=== PATIENT | male | born 1955 | race Caucasian/White ===

== ENCOUNTER 2016-11-17 13:33 | Emergency (ER) | payer BC, OTHER ==
[~2016-11-17] VITALS: Ht 177.8 cm; Wt 77.1 kg
[~2016-11-17 13:33] MED LIST: AMLO10TA2 PO; ASPI81TA27 PO; ATOR10TA52 PO; FOSI20TA PO; HYDR-2652 PO; OMEP20CA5 PO; ONDA4TAB5 PO; PANT40TA2 PO; POT10T PO
[2016-11-17] MEDS ORDERED: TETANUS-DIPTH-ACEL PERTUSSIS 0.5ML SYRG IM ONE (18:00)
[2016-11-17] MEDS ORDERED: BACITRACIN TOP OINT 1 UD PKG TOP ONE (18:15)
[2016-11-17 18:21] VITALS: BP 148/80
== END 2016-11-17 18:29 | disposition home or self-care (01) ==
LOC: EDUNIT# 13:33 → EDBD 13:33 → ER 13:37
DX: S01.112A Laceration without foreign body of left eyelid and periocular area, initial encounter (principal); W01.0XXA Fall on same level from slipping, tripping and stumbling without subsequent striking against object, initial encounter; Y93.89 Activity, other specified; Y99.8 Other external cause status; Y92.009 Unspecified place in unspecified non-institutional (private) residence as the place of occurrence of the external cause
CPT/HCPCS: 12013; 70450; 90471; 90715; 99284; J7030

== ENCOUNTER 2017-10-18 04:07 | Inpatient (IN) | payer BC, OTHER ==
[~2017-10-18] VITALS: Ht 180.3 cm; Wt 96.2 kg
[~2017-10-18 04:07] MED LIST changes: -HYDR-2652 PO; +HYDR50TA15 PO; -OMEP20CA5 PO; +OMEP20CA74 PO
[2017-10-18] MEDS ORDERED: NALBUPHINE HCL 10 MG/1ml INJECTION IV ONE (07:00)
[2017-10-18 07:04] LABS: Eosinophils # (auto) 0 uL; Eosinophils % (auto) 0.1 % (0.0-7.0); Monocytes # (auto) 0.4 uL
[2017-10-18 07:07] LABS: Basophils # (auto) 0.1 uL; Basophils % (auto) 0.9 % (0.0-2.0); Hemoglobin 16.8 g/dL (13.5-17.5); Lymphocytes # (auto) 0.8 uL; Lymphocytes % (auto) 11.2 % (10.0-50.0); Mean Corpuscular Hemoglobin 34.4 pg (28.0-32.0); Mean Corpuscular Hgb Conc. 35.8 g/dL (32.0-36.0); Mean Corpuscular Volume 96.3 fL (80.0-100.0); Monocytes % (auto) 5.6 % (0.0-12.0); Neutrophils # (auto) 5.5 uL; Neutrophils % (auto) 82.2 % (37.0-80.0); Platelet Count (auto) 238 10^3/uL (140-450); Red Blood Cells 4.88 10^6/uL (4.5-5.90); Red Cell Distribution Width 14.1 % (11.8-14.3); White Blood Cell 6.7 10^3/uL (4.4-10.8)
[2017-10-18 07:19] LABS: Alanine Aminotransferase 67 U/L (16-61); Albumin 4.6 g/dL (3.4-5.0); Amylase 132 U/L (25-115); Anion Gap 13 (5-15); Aspartate Aminotransferase 95 U/L (15-37); BUN/Creatinine Ratio 9.6; Blood Urea Nitrogen 10 mg/dL (7-18); Calcium 10.3 mg/dL (8.5-10.1); Carbon Dioxide 27 mmol/L (21-32); Chloride 93 mmol/L (98-107); GFR African American 92 mL/min; GFR Non-African American 76 mL/min; Glucose 130 mg/dL (74-106); Lipase 150 U/L (73-393); Sodium 133 mmol/L (136-145)
[2017-10-18 07:24] LABS: INR 0.96 (0.9-1.15); Partial Thromboplastin Time 26.4 sec (22.64-33.71); Prothrombin Time 10.5 sec (9.37-12.3)
[2017-10-18 07:25] LABS: Alkaline Phosphatase 83 U/L (45-117); Bilirubin, Total 1.1 mg/dL (0.2-1.0); Total Protein 9.4 g/dL (6.4-8.2)
[2017-10-18 07:27] LABS: Potassium 2.6 mmol/L (3.5-5.1)
[2017-10-18] MEDS ORDERED: POTASSIUM CHL 10% (20 MEQ/15ML) 15ml ORAL SOLN PO ONE (08:00)
[2017-10-18] MEDS ORDERED: cloNIDine HCL 0.1 MG TAB PO PRN (09:15)
[2017-10-18] MEDS ORDERED: DEXTROSE (50%) 50ML SYRG IV PRN (09:30)
[2017-10-18] MEDS ORDERED: cefTRIAXone 1GM/10ml IVPUSH 10 ML IV ONE (09:30)
[2017-10-18] MEDS ORDERED: NITROGLYCERIN 0.4 MG SL TAB SL PRN (09:45)
[2017-10-18] MEDS ORDERED: DOCUSATE SOD 100 MG CAP PO PRN (09:45)
[2017-10-18] MEDS ORDERED: MORPHINE SULFATE 4 MG/ML SYR/VIAL IV PRN (09:45)
[2017-10-18] MEDS ORDERED: ONDANSETRON HCL 4 MG/2 ML VIAL IV PRN (09:45)
[2017-10-18] MEDS: POTASSIUM CHL 10 Meq TABLET PO SCH ×2 (09:59→22:35)
[2017-10-18] MEDS: MULTIPLE VITAMIN TAB PO SCH (09:59)
[2017-10-18] MEDS ORDERED: FAMOTIDINE 20 MG TAB PO SCH (10:00)
[2017-10-18] MEDS: hydrALAZINE HCL 25 MG TAB PO SCH ×2 (10:15→22:38)
[2017-10-18] MEDS: SODIUM CHLORIDE 0.9% 1,000 ML IV SCH (10:15)
[2017-10-18] MEDS: amLODIPine BESYLATE 5 MG TAB PO SCH (10:16)
[2017-10-18] MEDS: FOSINOPRIL SODIUM 10 MG TAB PO SCH (10:16)
[2017-10-18] MEDS: ASPirin-EC 81 mg tab PO SCH (10:16)
[2017-10-18] MEDS: PANTOPRAZOLE 40 MG TAB PO SCH (10:16)
[2017-10-18] MEDS: MORPHINE SULFATE 4 MG/ML SYR/VIAL IV PRN ×3 (10:32→22:35)
[2017-10-18] MEDS ORDERED: GASTROGRAFIN 120 ML SOL ONE (10:36)
[2017-10-18] MEDS: ACCU-CHEK COMFORT CURVE STRIP VI SCH ×3 (11:30→22:00)
[2017-10-18 12:00] VITALS: BP 159/95
[2017-10-18 12:04] VITALS: BP 159/95
[2017-10-18] MEDS: HYDROcodone-ACET 5/325MG TAB PO PRN ×2 (12:30→17:29)
[2017-10-18] MEDS: InsuLIN REG 1unit/0.01ml Soln (100units/ml) SC SCH ×3 (12:41→22:00)
[2017-10-18] MEDS: metroNIDAZOLE 500MG/100ML 100 ML IV SCH ×2 (14:51→22:34)
[2017-10-18] MEDS ORDERED: HCTZ25T PO (15:42)
[2017-10-18 16:31] VITALS: BP 125/70
[2017-10-18 19:15] LABS: Urine Bacteria NONE SEEN /hpf (None Seen); Urine Blood Negative /uL (Negative); Urine Specific Gravity 1.019 (1.001-1.035); Urine WBC <1 /hpf (0 - 3)
[2017-10-18 20:00] VITALS: BP 128/71
[2017-10-18] MEDS: ACETAMINOPHEN 325 MG TAB PO PRN (20:21)
[2017-10-18 22:00] VITALS: BP 128/71
[2017-10-18] MEDS: ATORVASTATIN 20 MG TAB PO SCH (22:36)
[2017-10-18] MEDS: TEMAZEPAM 15 MG CAP PO PRN (22:39)
[2017-10-19] MEDS: SODIUM CHLORIDE 0.9% 1,000 ML IV SCH ×2 (02:17→18:23)
[2017-10-19] MEDS: HYDROcodone-ACET 5/325MG TAB PO PRN (04:54)
[2017-10-19 05:00] VITALS: BP 126/69
[2017-10-19] MEDS: metroNIDAZOLE 500MG/100ML 100 ML IV SCH ×3 (06:00→22:40)
[2017-10-19] MEDS: InsuLIN REG 1unit/0.01ml Soln (100units/ml) SC SCH ×4 (06:48→22:00)
[2017-10-19] MEDS: ACCU-CHEK COMFORT CURVE STRIP VI SCH ×4 (06:48→22:00)
[2017-10-19 07:03] LABS: Basophils # (auto) 0.1 uL; Basophils % (auto) 0.4 % (0.0-2.0); Eosinophils # (auto) 0 uL; Eosinophils % (auto) 0.1 % (0.0-7.0); Hematocrit 44.1 % (41.0-53.0); Lymphocytes # (auto) 0.8 uL; Lymphocytes % (auto) 6.4 % (10.0-50.0); Mean Corpuscular Hemoglobin 33.2 pg (28.0-32.0); Mean Corpuscular Volume 97.8 fL (80.0-100.0); Monocytes # (auto) 0.9 uL; Neutrophils # (auto) 11.2 uL; Neutrophils % (auto) 86.1 % (37.0-80.0); Platelet Count (auto) 201 10^3/uL (140-450); Red Blood Cells 4.51 10^6/uL (4.5-5.90); Red Cell Distribution Width 14.4 % (11.8-14.3); White Blood Cell 12.9 10^3/uL (4.4-10.8)
[2017-10-19 07:12] LABS: Albumin 3.5 g/dL (3.4-5.0); BUN/Creatinine Ratio 11.6; Bilirubin, Total 2.2 mg/dL (0.2-1.0); Calcium 8.4 mg/dL (8.5-10.1); Total Protein 7.8 g/dL (6.4-8.2)
[2017-10-19 07:43] LABS: Potassium 2.5 mmol/L (3.5-5.1)
[2017-10-19 08:00] VITALS: BP 126/71
[2017-10-19] MEDS ORDERED: POTASSIUM CHL 20 Meq TABLET PO ONE (08:00)
[2017-10-19] MEDS: cefTRIAXone 1GM/10ml IVPUSH 10 ML IV SCH (09:41)
[2017-10-19] MEDS: MORPHINE SULFATE 4 MG/ML SYR/VIAL IV PRN (09:41)
[2017-10-19] MEDS: MULTIPLE VITAMIN TAB PO SCH (09:42)
[2017-10-19] MEDS: FOSINOPRIL SODIUM 10 MG TAB PO SCH (09:42)
[2017-10-19] MEDS: ASPirin-EC 81 mg tab PO SCH (09:42)
[2017-10-19] MEDS: POTASSIUM CHL 10 Meq TABLET PO SCH ×2 (09:42→22:00)
[2017-10-19] MEDS: hydrALAZINE HCL 25 MG TAB PO SCH ×2 (09:42→22:37)
[2017-10-19] MEDS: amLODIPine BESYLATE 5 MG TAB PO SCH (09:43)
[2017-10-19] MEDS: PANTOPRAZOLE 40 MG TAB PO SCH (09:43)
[2017-10-19 12:00] VITALS: BP 123/69
[2017-10-19] MEDS: LACTULOSE 20Gm/30ML SOLN PO SCH ×2 (12:00→17:39)
[2017-10-19 17:13] VITALS: BP 127/73
[2017-10-19 20:00] VITALS: BP 130/72
[2017-10-19 22:00] VITALS: BP 130/72
[2017-10-19] MEDS: ACETAMINOPHEN 325 MG TAB PO PRN (22:38)
[2017-10-19] MEDS: TEMAZEPAM 15 MG CAP PO PRN (22:38)
[2017-10-19] MEDS: ATORVASTATIN 20 MG TAB PO SCH (22:40)
[2017-10-20 05:00] VITALS: BP 123/69
[2017-10-20 05:41] LABS: Basophils # (auto) 0.1 uL; Basophils % (auto) 0.5 % (0.0-2.0); Eosinophils # (auto) 0 uL; Eosinophils % (auto) 0.3 % (0.0-7.0); Lymphocytes # (auto) 1.2 uL; Neutrophils # (auto) 8.9 uL
[2017-10-20 05:43] LABS: Hemoglobin 14.5 g/dL (13.5-17.5); Lymphocytes % (auto) 10.6 % (10.0-50.0); Mean Corpuscular Hemoglobin 33.9 pg (28.0-32.0); Mean Corpuscular Hgb Conc. 34.6 g/dL (32.0-36.0); Mean Corpuscular Volume 97.8 fL (80.0-100.0); Monocytes # (auto) 1.5 uL; Monocytes % (auto) 12.7 % (0.0-12.0); Neutrophils % (auto) 75.9 % (37.0-80.0); Nucleated Red Blood Cells % 0.3 %; Platelet Count (auto) 181 10^3/uL (140-450); Red Cell Distribution Width 14.1 % (11.8-14.3); White Blood Cell 11.8 10^3/uL (4.4-10.8)
[2017-10-20] MEDS: metroNIDAZOLE 500MG/100ML 100 ML IV SCH ×3 (05:51→22:17)
[2017-10-20] MEDS: LACTULOSE 20Gm/30ML SOLN PO SCH ×4 (05:52→18:00)
[2017-10-20] MEDS: ACETAMINOPHEN 325 MG TAB PO PRN ×2 (05:52→20:48)
[2017-10-20 06:04] LABS: BUN/Creatinine Ratio 10.6; Calcium 8.6 mg/dL (8.5-10.1)
[2017-10-20 06:12] LABS: Potassium 2.6 mmol/L (3.5-5.1)
[2017-10-20] MEDS: InsuLIN REG 1unit/0.01ml Soln (100units/ml) SC SCH ×4 (06:52→20:47)
[2017-10-20] MEDS: ACCU-CHEK COMFORT CURVE STRIP VI SCH ×4 (06:52→20:47)
[2017-10-20 08:00] VITALS: BP 115/67
[2017-10-20] MEDS: SODIUM CHLORIDE 0.9% 1,000 ML IV SCH (08:05)
[2017-10-20 08:21] VITALS: BP 115/67
[2017-10-20] MEDS: cefTRIAXone 1GM/10ml IVPUSH 10 ML IV SCH (09:40)
[2017-10-20] MEDS: MULTIPLE VITAMIN TAB PO SCH (09:41)
[2017-10-20] MEDS: POTASSIUM CHL 10 Meq TABLET PO SCH (09:41)
[2017-10-20] MEDS: PANTOPRAZOLE 40 MG TAB PO SCH (09:41)
[2017-10-20] MEDS: ASPirin-EC 81 mg tab PO SCH (09:41)
[2017-10-20] MEDS: hydrALAZINE HCL 25 MG TAB PO SCH ×2 (09:42→22:20)
[2017-10-20] MEDS: amLODIPine BESYLATE 5 MG TAB PO SCH (09:43)
[2017-10-20] MEDS: FOSINOPRIL SODIUM 10 MG TAB PO SCH (09:43)
[2017-10-20 11:53] VITALS: BP 132/76
[2017-10-20] MEDS ORDERED: POTASSIUM CHL 10% (20 MEQ/15ML) 15ml ORAL SOLN PO ONE (13:00)
[2017-10-20] MEDS ORDERED: MORPHINE SULFATE 4 MG/ML SYR/VIAL IV PRN (13:00)
[2017-10-20 17:20] VITALS: BP 135/87
[2017-10-20 22:00] VITALS: BP 146/79
[2017-10-20] MEDS: ATORVASTATIN 20 MG TAB PO SCH (22:17)
[2017-10-21] MEDS: SODIUM CHLORIDE 0.9% 1,000 ML IV SCH (04:23)
[2017-10-21 05:00] VITALS: BP 112/73
[2017-10-21] MEDS: metroNIDAZOLE 500MG/100ML 100 ML IV SCH ×3 (05:11→21:52)
[2017-10-21] MEDS: LACTULOSE 20Gm/30ML SOLN PO SCH ×3 (05:12→12:00)
[2017-10-21] MEDS: ACCU-CHEK COMFORT CURVE STRIP VI SCH ×4 (05:57→21:56)
[2017-10-21] MEDS: InsuLIN REG 1unit/0.01ml Soln (100units/ml) SC SCH ×4 (05:58→21:54)
[2017-10-21 09:00] VITALS: BP 142/87
[2017-10-21] MEDS: POTASSIUM CHL 20 Meq TABLET PO SCH (10:02)
[2017-10-21] MEDS: cefTRIAXone 1GM/10ml IVPUSH 10 ML IV SCH (10:02)
[2017-10-21] MEDS: ASPirin-EC 81 mg tab PO SCH (10:03)
[2017-10-21] MEDS: MULTIPLE VITAMIN TAB PO SCH (10:03)
[2017-10-21] MEDS: PANTOPRAZOLE 40 MG TAB PO SCH ×2 (10:03→21:54)
[2017-10-21] MEDS: hydrALAZINE HCL 25 MG TAB PO SCH ×2 (10:03→21:53)
[2017-10-21] MEDS: amLODIPine BESYLATE 5 MG TAB PO SCH (10:04)
[2017-10-21] MEDS: FOSINOPRIL SODIUM 10 MG TAB PO SCH (10:04)
[2017-10-21 13:00] VITALS: BP 130/84
[2017-10-21 14:21] LABS: BUN/Creatinine Ratio 8.6
[2017-10-21 14:27] LABS: Potassium 2.9 mmol/L (3.5-5.1)
[2017-10-21] MEDS: POTASSIUM CHL 20MEQ/100ML 100 ML IV SCH ×3 (16:00→20:15)
[2017-10-21 16:56] VITALS: BP 140/75
[2017-10-21] MEDS: ATORVASTATIN 20 MG TAB PO SCH (21:54)
[2017-10-21 22:00] VITALS: BP 132/85
[2017-10-21] MEDS: TEMAZEPAM 15 MG CAP PO PRN (22:57)
[2017-10-22 05:00] VITALS: BP 122/71
[2017-10-22] MEDS: metroNIDAZOLE 500MG/100ML 100 ML IV SCH ×2 (05:18→14:56)
[2017-10-22] MEDS: InsuLIN REG 1unit/0.01ml Soln (100units/ml) SC SCH ×3 (05:24→17:00)
[2017-10-22] MEDS: ACCU-CHEK COMFORT CURVE STRIP VI SCH ×3 (05:25→17:00)
[2017-10-22] MEDS: SODIUM CHLORIDE 0.9% 1,000 ML IV SCH ×2 (05:25→13:31)
[2017-10-22 06:27] LABS: Basophils # (auto) 0.1 uL; Basophils % (auto) 0.9 % (0.0-2.0); Eosinophils # (auto) 0.1 uL; Eosinophils % (auto) 2.1 % (0.0-7.0); Hematocrit 41.8 % (41.0-53.0); Hemoglobin 14.4 g/dL (13.5-17.5); Lymphocytes % (auto) 14.1 % (10.0-50.0); Mean Corpuscular Hemoglobin 33.8 pg (28.0-32.0); Mean Corpuscular Hgb Conc. 34.4 g/dL (32.0-36.0); Mean Corpuscular Volume 98.2 fL (80.0-100.0); Monocytes % (auto) 13.8 % (0.0-12.0); Neutrophils # (auto) 4.9 uL; Neutrophils % (auto) 69.1 % (37.0-80.0); Platelet Count (auto) 235 10^3/uL (140-450); Red Blood Cells 4.25 10^6/uL (4.5-5.90); Red Cell Distribution Width 14.2 % (11.8-14.3); White Blood Cell 7.2 10^3/uL (4.4-10.8)
[2017-10-22 06:41] LABS: Calcium 8.3 mg/dL (8.5-10.1)
[2017-10-22 06:45] LABS: BUN/Creatinine Ratio 9.2
[2017-10-22 06:52] LABS: Bilirubin, Total 1.3 mg/dL (0.2-1.0)
[2017-10-22 07:10] LABS: Potassium 2.8 mmol/L (3.5-5.1)
[2017-10-22] MEDS ORDERED: NALOXONE HCL 0.4 MG/ML VIAL ONE (08:43)
[2017-10-22] MEDS ORDERED: SODIUM CHLORIDE LOCK 10 ML ONE (08:44)
[2017-10-22] MEDS ORDERED: diphenhdrAMINE HCL 50 MG/1 ML VL ONE (08:44)
[2017-10-22] MEDS ORDERED: LIDOCAINE VISCOUS 2% 15ML UD ONE (08:44)
[2017-10-22] MEDS ORDERED: FLUMAZENIL 0.1 MG/ML INJ 10ML MDV IV ONE (08:44)
[2017-10-22 09:00] VITALS: BP 136/82
[2017-10-22] MEDS ORDERED: POTASSIUM CHL 10% (20 MEQ/15ML) 15ml ORAL SOLN PO ONE (09:00)
[2017-10-22] MEDS: POTASSIUM CHL 20MEQ/100ML 100 ML IV SCH ×2 (09:13→12:26)
[2017-10-22] MEDS: cefTRIAXone 1GM/10ml IVPUSH 10 ML IV SCH (09:17)
[2017-10-22] MEDS: ASPirin-EC 81 mg tab PO SCH (09:21)
[2017-10-22] MEDS: hydrALAZINE HCL 25 MG TAB PO SCH (09:22)
[2017-10-22] MEDS: FOSINOPRIL SODIUM 10 MG TAB PO SCH (09:23)
[2017-10-22] MEDS: PANTOPRAZOLE 40 MG TAB PO SCH (09:24)
[2017-10-22] MEDS: MULTIPLE VITAMIN TAB PO SCH (09:25)
[2017-10-22] MEDS: amLODIPine BESYLATE 5 MG TAB PO SCH (09:26)
[2017-10-22] MEDS: POTASSIUM CHL 20 Meq TABLET PO SCH (10:00)
[2017-10-22] MEDS: MIDAZOLAM HCL 5 MG/ML-1ML VIAL ONE ×2 (11:27→11:32)
[2017-10-22] MEDS: fentaNYL CITRATE 100 MCG/2 ML VL ONE ×2 (11:27→11:32)
[2017-10-22 13:00] VITALS: BP 133/77
[2017-10-22 13:49] VITALS: BP 131/79
== END 2017-10-22 17:40 | disposition home or self-care (01) | DRG 389 ==
LOC: ER 04:10 → TELE 04:11 → TELE-WESTW 12:05 → WEST WING 10-19 12:07
PROVIDERS: ADMIT Internal Medicine; ATTEND Family Medicine
PROC: 0DB68ZX Excision of Stomach, Via Natural or Artificial Opening Endoscopic, Diagnostic (ICD-10-PCS; principal; 2017-10-22 11:25)
DX: K56.600 Partial intestinal obstruction, unspecified as to cause (principal); E87.1 Hypo-osmolality and hyponatremia; K31.84 Gastroparesis; E11.43 Type 2 diabetes mellitus with diabetic autonomic (poly)neuropathy; E83.52 Hypercalcemia; K76.0 Fatty (change of) liver, not elsewhere classified; J98.11 Atelectasis; K29.60 Other gastritis without bleeding; E78.5 Hyperlipidemia, unspecified; E87.6 Hypokalemia; I10 Essential (primary) hypertension; Z82.49 Family history of ischemic heart disease and other diseases of the circulatory system; Z87.11 Personal history of peptic ulcer disease
CPT/HCPCS: 36415; 43239; 74176; 74250; 80048; 80053; 81001; 82150; 82962; 83036; 83690; 84484; 85025; 85610; 85730; 87081; 87086; 93005; 93306; 96374; 96375; J1815; J2250; J3480; J3490

== ENCOUNTER 2018-01-16 13:59 | Inpatient (IN) | payer OTHER, BC ==
[~2018-01-16] VITALS: Ht 180.3 cm; Wt 92.0 kg
[~2018-01-16 13:59] MED LIST changes: +HCTZ25T PO
[2018-01-16] MEDS ORDERED: SODIUM CHLORIDE 0.9% 500 ML IVB ONE (15:01)
[2018-01-16] MEDS ORDERED: ONDANSETRON HCL 4 MG/2 ML VIAL IV ONE (15:15)
[2018-01-16] MEDS ORDERED: MORPHINE SULFATE 4 MG/ML SYR/VIAL IV ONE (15:15)
[2018-01-16 15:43] LABS: Basophils # (auto) 0 uL; Eosinophils # (auto) 0 uL; Hemoglobin 18.4 g/dL (13.5-17.5); Lymphocytes # (auto) 0.5 uL; Neutrophils # (auto) 9.1 uL; White Blood Cell 10.3 10^3/uL (4.4-10.8)
[2018-01-16 15:45] LABS: Basophils % (auto) 0.2 % (0.0-2.0); Lymphocytes % (auto) 5.2 % (10.0-50.0); Mean Corpuscular Hemoglobin 33.6 pg (28.0-32.0); Mean Corpuscular Hgb Conc. 34.7 g/dL (32.0-36.0); Monocytes # (auto) 0.7 uL; Monocytes % (auto) 6.6 % (0.0-12.0); Nucleated Red Blood Cells % 0.2 %; Platelet Count (auto) 201 10^3/uL (140-450); Red Blood Cells 5.46 10^6/uL (4.5-5.90); Red Cell Distribution Width 15.1 % (11.8-14.3)
[2018-01-16 15:59] LABS: INR 1.05 (0.9-1.15); Prothrombin Time 11.5 sec (9.37-12.3)
[2018-01-16 16:02] LABS: Alanine Aminotransferase 39 U/L (16-61); Albumin 3.8 g/dL (3.4-5.0); Amylase 66 U/L (25-115); Anion Gap 10 (5-15); Aspartate Aminotransferase 28 U/L (15-37); BUN/Creatinine Ratio 12.9; Blood Alcohol < 3.0 mg/dL (0-5); Blood Urea Nitrogen 12 mg/dL (7-18); Calcium 9.5 mg/dL (8.5-10.1); Carbon Dioxide 24 mmol/L (21-32); Chloride 101 mmol/L (98-107); GFR African American 105 mL/min; GFR Non-African American 87 mL/min; Glucose 129 mg/dL (74-106); Lipase 67 U/L (73-393); Magnesium 1.7 mg/dL (1.6-2.6); Potassium 3.3 mmol/L (3.5-5.1); Sodium 135 mmol/L (136-145)
[2018-01-16 16:05] LABS: Alkaline Phosphatase 81 U/L (45-117); Bilirubin, Total 1.6 mg/dL (0.2-1.0); Total Protein 8.7 g/dL (6.4-8.2)
[2018-01-16] MEDS ORDERED: MORPHINE SULFATE 4 MG/ML SYR/VIAL IV PRN ×2 (16:15)
[2018-01-16] MEDS ORDERED: PANTOPRAZOLE 40 MG/10 ML VIAL IV ONE (16:15)
[2018-01-16] MEDS ORDERED: LORazepam 2MG/ML-1ML VIAL IV PRN ×2 (16:15→18:45)
[2018-01-16] MEDS ORDERED: PROMETHAZINE HCL 25 MG/ML 1ML IV PRN (16:15)
[2018-01-16] MEDS ORDERED: NITROGLYCERIN 0.4 MG SL TAB SL PRN (16:15)
[2018-01-16] MEDS ORDERED: LABETALOL HCL 5 MG/ML ML 20ML VIAL IV PRN (16:15)
[2018-01-16] MEDS ORDERED: cefTRIAXone 1GM/10ml IVPUSH 10 ML IV ONE (16:15)
[2018-01-16] MEDS ORDERED: GASTROGRAFIN 120 ML SOL ONE (16:16)
[2018-01-16] MEDS ORDERED: LIDOCAINE 2% JELLY 11ml (GLYDO) UR ONE (18:15)
[2018-01-16] MEDS: SODIUM CHLORIDE 0.9% 1,000 ML IV SCH (18:20)
[2018-01-16] MEDS ORDERED: THIAMINE 100mg/ml INJ (200mg/2ml VIAL) IV ONE (18:45)
[2018-01-16] MEDS: metroNIDAZOLE 500MG/100ML 100 ML IV SCH (18:50)
[2018-01-16 20:15] VITALS: BP 160/91
[2018-01-16 20:30] VITALS: BP 160/91
[2018-01-17] MEDS: MORPHINE SULFATE 4 MG/ML SYR/VIAL IV PRN ×2 (00:11→22:51)
[2018-01-17] MEDS: metroNIDAZOLE 500MG/100ML 100 ML IV SCH ×5 (00:11→23:30)
[2018-01-17 05:00] VITALS: BP 157/88
[2018-01-17] MEDS: SODIUM CHLORIDE 0.9% 1,000 ML IV SCH ×3 (05:20→23:24)
[2018-01-17 05:54] LABS: Basophils # (auto) 0 uL; Eosinophils # (auto) 0 uL; Lymphocytes # (auto) 0.8 uL; Monocytes # (auto) 0.8 uL; Nucleated Red Blood Cells % 0.2 %; Red Blood Cells 4.54 10^6/uL (4.5-5.90)
[2018-01-17 05:58] LABS: Basophils % (auto) 0.3 % (0.0-2.0); Eosinophils % (auto) 0.3 % (0.0-7.0); Hematocrit 44.5 % (41.0-53.0); Hemoglobin 15.4 g/dL (13.5-17.5); Lymphocytes % (auto) 11.7 % (10.0-50.0); Mean Corpuscular Hemoglobin 33.9 pg (28.0-32.0); Mean Corpuscular Hgb Conc. 34.6 g/dL (32.0-36.0); Mean Corpuscular Volume 97.9 fL (80.0-100.0); Monocytes % (auto) 12.2 % (0.0-12.0); Neutrophils # (auto) 4.9 uL; Neutrophils % (auto) 75.5 % (37.0-80.0); Platelet Count (auto) 142 10^3/uL (140-450); Red Cell Distribution Width 15.1 % (11.8-14.3); White Blood Cell 6.4 10^3/uL (4.4-10.8)
[2018-01-17 06:23] LABS: Albumin 3.2 g/dL (3.4-5.0); BUN/Creatinine Ratio 14.9; Calcium 8.2 mg/dL (8.5-10.1)
[2018-01-17 06:38] LABS: Bilirubin, Total 1.7 mg/dL (0.2-1.0); Total Protein 7.1 g/dL (6.4-8.2)
[2018-01-17 06:49] LABS: Potassium 2.7 mmol/L (3.5-5.1)
[2018-01-17] MEDS ORDERED: POTASSIUM CHL 20 Meq TABLET PO ONE (07:30)
[2018-01-17 08:27] VITALS: BP 141/79
[2018-01-17] MEDS: cefTRIAXone 1GM/10ml IVPUSH 10 ML IV SCH (09:37)
[2018-01-17] MEDS: PANTOPRAZOLE 40 MG/10 ML VIAL IV SCH (09:37)
[2018-01-17] MEDS: THIAMINE 100mg/ml INJ (200mg/2ml VIAL) IV SCH (09:39)
[2018-01-17 13:38] VITALS: BP 139/85
[2018-01-17] MEDS: POTASSIUM CHL 20MEQ/100ML 100 ML IV SCH ×2 (13:43→16:05)
[2018-01-17 17:29] VITALS: BP 155/92
[2018-01-17 23:39] VITALS: BP 149/84
[2018-01-18 01:09] LABS: Urine Bacteria NONE SEEN /hpf (None Seen); Urine Blood Negative /uL (Negative); Urine Mucus FEW (None Seen); Urine Specific Gravity 1.016 (1.001-1.035); Urine WBC 2 /hpf (0 - 3)
[2018-01-18 05:49] VITALS: BP 120/69
[2018-01-18 06:00] VITALS: BP 130/80
[2018-01-18] MEDS: metroNIDAZOLE 500MG/100ML 100 ML IV SCH ×2 (06:30→11:36)
[2018-01-18] MEDS: cefTRIAXone 1GM/10ml IVPUSH 10 ML IV SCH (09:01)
[2018-01-18] MEDS: PANTOPRAZOLE 40 MG/10 ML VIAL IV SCH (09:41)
[2018-01-18] MEDS: THIAMINE 100mg/ml INJ (200mg/2ml VIAL) IV SCH (09:41)
[2018-01-18 12:49] VITALS: BP 139/90
[2018-01-18 14:10] VITALS: BP 139/90
[2018-01-18 16:33] VITALS: BP 105/69
== END 2018-01-18 18:30 | disposition home or self-care (01) | DRG 389 ==
LOC: ER 13:59 → TELE 14:00 → TELE-WESTW 20:35
PROVIDERS: ADMIT Internal Medicine; ATTEND Internal Medicine
DX: K56.600 Partial intestinal obstruction, unspecified as to cause (principal); J98.11 Atelectasis; E78.00 Pure hypercholesterolemia, unspecified; E78.5 Hyperlipidemia, unspecified; K80.20 Calculus of gallbladder without cholecystitis without obstruction; I70.8 Atherosclerosis of other arteries; K29.70 Gastritis, unspecified, without bleeding; I10 Essential (primary) hypertension; Z82.49 Family history of ischemic heart disease and other diseases of the circulatory system; Z83.3 Family history of diabetes mellitus; Z87.11 Personal history of peptic ulcer disease; Z79.899 Other long term (current) drug therapy; Z79.82 Long term (current) use of aspirin; Z80.9 Family history of malignant neoplasm, unspecified
CPT/HCPCS: 36415; 71046; 74176; 74250; 80053; 80320; 81001; 82140; 82150; 82378; 83690; 83735; 84484; 85025; 85610; 93005; 94761; 96361; 96374; 96375; C9113; J2405; J3480; J3490